=== PATIENT | female | born 1975 | race Caucasian/White ===

== ENCOUNTER 2023-12-14 17:56 | Emergency (ER) | payer SELFPAY ==
[~2023-12-14] VITALS: Ht 175.3 cm; Wt 70.5 kg
[2023-12-14 20:36] LABS: BASO # 0.05 K/mm3 (0.02-0.10); EOS # 0.49 K/mm3 (0.04-0.40); EOS % 6.2 % (1.0-5.0); HEMOGLOBIN 13.8 g/dL (12.5-16.0); MEAN CELL VOLUME 96 fl (78-100); MEAN CORPUSCULAR HEMOGLOBIN 33 pg (27-31); MEAN CORPUSCULAR HGB CONC 35 g/dL (33-37); MONO # 0.57 K/mm3 (0.20-0.80); NEU # 4.01 K/mm3 (1.40-6.50); PLATELET COUNT 374 K/mm3 (130-400); RED BLOOD COUNT 4.19 M/mm3 (4.10-5.30); RED CELL DISTRIBUTION WIDTH 11.9 % (11.5-14.5); WHITE BLOOD COUNT 7.9 K/mm3 (4.8-10.8)
[2023-12-14 20:45] LABS: ALBUMIN 3.9 g/dL (3.5-5.0)
[2023-12-14 20:47] LABS: TOTAL PROTEIN 6.7 g/dL (6.4-8.3)
[2023-12-14 20:49] LABS: TOTAL BILIRUBIN 0.2 mg/dL (0.2-1.2)
[2023-12-14 21:12] LABS: PH-URINE 5.5 (5.0 - 8.0); URINE APPEARANCE SLIGHTLY CLOUDY (CLEAR); URINE BILIRUBIN NEGATIVE (NEGATIVE); URINE COLOR YELLOW (YELLOW); URINE GLUCOSE NEGATIVE (NEGATIVE); URINE KETONE NEGATIVE (NEGATIVE); URINE NITRATE NEGATIVE (NEGATIVE); URINE PROTEIN(semi-quant) NEGATIVE (NEGATIVE)
[2023-12-14 21:13] LABS: URINE BLOOD TRACE-INTACT (NEGATIVE); URINE LEUKOCYTE ESTERASE NEGATIVE (NEGATIVE); URINE WBC 0-1 /hpf (0-3)
[2023-12-14 22:15] VITALS: BP 142/100
== END 2023-12-14 22:15 | disposition home or self-care (01) ==
LOC: ED 17:56
PROVIDERS: Physician Assistant
DX: A08.4 Viral intestinal infection, unspecified (principal); I10 Essential (primary) hypertension; E87.6 Hypokalemia; Z90.49 Acquired absence of other specified parts of digestive tract

== ENCOUNTER 2024-09-21 19:18 | Emergency (ER) | payer SELFPAY ==
[~2024-09-21] VITALS: Ht 172.7 cm; Wt 76.9 kg
[2024-09-21] MEDS ORDERED: NS 1,000 ML IV SCH ×2 (20:00→20:30)
[2024-09-21 20:05] LABS: BASO # 0.04 K/mm3 (0.02-0.10); EOS # 0.15 K/mm3 (0.04-0.40); EOS % 1.5 % (1.0-5.0); HEMATOCRIT 42.2 % (37.0-47.0); HEMOGLOBIN 14.7 g/dL (12.5-16.0); LYMPH# 3.48 K/mm3 (1.50-4.00); MEAN CELL VOLUME 101 fl (78-100); MEAN CORPUSCULAR HEMOGLOBIN 35 pg (27-31); MEAN CORPUSCULAR HGB CONC 35 g/dL (33-37); MEAN PLATELET VOLUME 8.9 fl (7.4-10.4); MONO # 0.76 K/mm3 (0.20-0.80); NEU # 5.73 K/mm3 (1.40-6.50); PLATELET COUNT 358 K/mm3 (130-400); RED BLOOD COUNT 4.16 M/mm3 (4.10-5.30); RED CELL DISTRIBUTION WIDTH 13.1 % (11.5-14.5); WHITE BLOOD COUNT 10.2 K/mm3 (4.8-10.8)
[2024-09-21 20:06] LABS: ALBUMIN 4.1 g/dL (3.5-5.0)
[2024-09-21 20:07] LABS: CALCIUM 8.5 mg/dL (8.3-10.5)
[2024-09-21 20:08] LABS: TOTAL PROTEIN 6.8 g/dL (6.4-8.3)
[2024-09-21 20:10] LABS: TOTAL BILIRUBIN 0.7 mg/dL (0.2-1.2)
[2024-09-21 20:11] LABS: URINE APPEARANCE SLIGHTLY CLOUDY (CLEAR); URINE COLOR YELLOW (YELLOW)
[2024-09-21 20:12] LABS: URINE BILIRUBIN NEGATIVE (NEGATIVE); URINE BLOOD TRACE-INTACT (NEGATIVE); URINE GLUCOSE NEGATIVE (NEGATIVE); URINE KETONE NEGATIVE (NEGATIVE); URINE LEUKOCYTE ESTERASE 3+ (NEGATIVE); URINE NITRATE NEGATIVE (NEGATIVE); URINE PROTEIN(semi-quant) NEGATIVE (NEGATIVE); URINE WBC >50 /hpf (0-3)
[2024-09-21] MEDS ORDERED: Potassium Chloride 100 ML IV SCH (20:30)
[2024-09-21] MEDS ORDERED: cefTRIAXone 1 G in Water For Injection,Sterile 10 ML IV ONE (20:45)
[2024-09-22 00:15] LABS: CALCIUM 7.8 mg/dL (8.3-10.5)
[2024-09-22 00:56] VITALS: BP 137/93
== END 2024-09-22 00:56 | disposition home or self-care (01) ==
LOC: ED 19:18
PROVIDERS: Family Medicine
DX: K52.9 Noninfective gastroenteritis and colitis, unspecified (principal); E87.6 Hypokalemia; F17.210 Nicotine dependence, cigarettes, uncomplicated; F17.290 Nicotine dependence, other tobacco product, uncomplicated; Z90.710 Acquired absence of both cervix and uterus; Z79.899 Other long term (current) drug therapy
CPT/HCPCS: J3480; J7030

== ENCOUNTER 2024-09-22 04:52 | Emergency (ER) | payer SELFPAY ==
[~2024-09-22] VITALS: Ht 172.7 cm; Wt 78.1 kg
[2024-09-22 05:55] VITALS: BP 149/72
[2024-09-22 06:07] LABS: ALCOHOL IN-HOUSE < 10 mg/dL (<10)
[2024-09-22 06:08] LABS: ACETAMINOPHEN < 1 ug/mL
[2024-09-22 08:04] VITALS: BP 139/100
[2024-09-22 10:11] VITALS: BP 146/87
== END 2024-09-22 10:14 | disposition home or self-care (01) ==
LOC: ED 04:52
PROVIDERS: Family Medicine
DX: R45.851 Suicidal ideations (principal); J45.909 Unspecified asthma, uncomplicated; F17.210 Nicotine dependence, cigarettes, uncomplicated; F17.290 Nicotine dependence, other tobacco product, uncomplicated